=== PATIENT | female | born 1960 | race Caucasian/White ===

== ENCOUNTER 2017-07-17 01:10 | Emergency (ER) | payer BC, SELFPAY ==
[2017-07-17] MEDS ORDERED: FAMOTIDINE 20 MG/2 ML VIAL IV ONE (01:57)
[2017-07-17] MEDS ORDERED: ONDANSETRON 4 MG/2 ML VIAL ONE (01:57)
[2017-07-17] MEDS ORDERED: NA CHLORIDE 0.9% 1,000 ML ONE (01:57)
[2017-07-17] MEDS ORDERED: GLUCAGON 1 MG/VIAL ONE (01:57)
[2017-07-17 02:10] LABS: Absolute Lymphocytes (CBC) 2.1 K/uL (0.7-4.9); Absolute Monocytes 0.6 K/uL (0.1-1.3); Absolute Neutrophil 5.4 K/uL (1.8-8.0); Basophils % 0.8 % (0-1.3); Eosinophils % 2.9 % (0-4.4); Hematocrit 39.2 % (36.0-45.0); MCH 30.5 pg (27.0-35.0); MCV 89.8 fL (80-100); MPV 8.9 fL (7.6-11.3); Monocytes % 7.2 % (3.3-12.3); RBC Red Blood Cell Count 4.36 M/uL (3.86-4.86)
[2017-07-17 02:41] LABS: Albumin 4.3 g/dL (3.2-5.5); Bilirubin Direct 0.1 mg/dL (0-0.2); Protein, Total 7.2 g/dL (6.0-8.3)
--- NOTE | 2017-07-17 03:20 | ER ---
Nurse's Notes [facility] Name: Aparna Panchal Age: 57 yrs Sex: Female : 1960 Arrival Date: 07/17/2017 Time: 01:15 Bed 24 Private MD: Gisele Lal K Diagnosis: Esophageal Foreign Body Presentation: 07/17 01:33 Presenting complaint: Patient states: Pt. comes from home c/o of esophageal rk2 obstruction. Pt. states that she was eating meat yesterday around 1300 when she got a piece stuck in her throat. Pt. states that she had this happen in the past. Transition of care: patient was not received from another setting of care. Onset of symptoms was July 17, 2017. Risk Assessment: Do you want to hurt yourself or someone else? Patient reports no desire to harm self or others. Initial Sepsis Screen: Does the patient meet any 2 criteria? No. Patient's initial sepsis screen is negative. Does the patient have a suspected source of infection? No. Patient's initial sepsis screen is negative. 01:33 Method Of Arrival: Ambulatory rk2 01:33 Acuity: HAYLIE 3 rk2 03:23 Care prior to arrival: None. bb Triage Assessment: 01:38 General: Appears in no apparent distress. well developed, well nourished, Behavior is rk2 calm, cooperative. Pain:. EENT: Reports meat stuck in throat. Neuro: Level of Consciousness is alert, obeys commands, Oriented to person, place, time, situation. Respiratory: Airway is patent Respiratory effort is even, unlabored, Respiratory pattern is regular, symmetrical. Derm: Skin is pink, warm \T\ dry. Historical: - Allergies: 01:43 Compazine; rk2 01:43 CELESTINO INHIBITORS; rk2 - Immunization history:: Pneumococcal vaccine is not up to date, Flu vaccine is not up to date. - Social history:: Smoking status: Patient/guardian denies using tobacco, never smoked. - Ebola Screening: : Patient negative for fever greater than or equal to 101.5 degrees Fahrenheit, and additional compatible Ebola Virus Disease symptoms. - Family history:: not pertinent. - Hospitalizations: : No recent hospitalization is reported. Screenin:41 Abuse screen: Denies threats or abuse. Nutritional screening: No deficits noted. rk2 Tuberculosis screening: No symptoms or risk factors identified. Fall Risk None identified. Assessment: 03:10 Reassessment: report called to Raj Paula RN at [facility] bed 1515. bb 03:21 Reassessment: Patient and/or family updated on plan of care and expected duration. Pain bb level reassessed. Patient is alert, oriented x 3, equal unlabored respirations, skin warm/dry/pink. pt appears in no discomfort, IV site intact, family at bedside awaiting transfer to [facility]. 03:46 Reassessment: [facility] at bedside for transport to [facility], pt is A\T\O x 4, resp bb unlabored, IV site intact. Vital Signs: 01:38 BP 165 / 91; Pulse 74; Resp 17; Temp 98.2; Pulse Ox 97% on R/A; rk2 03:22 BP 150 / 75; Pulse 59; Resp 18 S; Temp 98.2(O); Pulse Ox 97% on R/A; bb ED Course: 01:15 Patient arrived in ED. al2 01:16 Gisele Lal MD is Private Physician. al2 01:24 Ratna Roldan, AXEL is Primary Nurse. rk2 01:26 Milton Rodríguez MD is Attending Physician. wa 01:38 Triage completed. rk2 01:40 Inserted saline lock: 20 gauge in right antecubital area, using aseptic technique. bb Blood collected. 01:41 Patient has correct armband on for positive identification. Bed in low position. Call rk2 light in reach. 01:43 Arm band placed on. rk2 02:00 Chest Pa And Lat (2 Views) XRAY Sent. rk2 02:04 X-ray completed. jw2 02:04 Chest Pa And Lat (2 Views) XRAY In Process Unspecified. EDMS 03:23 No provider procedures requiring assistance completed. Patient transferred, IV remains bb in place. Administered Medications: 02:14 Drug: Glucagon 1 mg Route: IVP; Site: right antecubital; rk2 03:20 Follow up: Response: No adverse reaction bb 02:15 Drug: NS 0.9% 1000 ml Route: IV; Rate: 1 bolus; Site: right antecubital; rk2 03:20 Follow up: IV Status: Completed infusion; IV Intake: 1000ml bb 02:15 Drug: Zofran 4 mg Route: IVP; Site: right antecubital; rk2 03:20 Follow up: Response: No adverse reaction bb 02:15 Drug: Pepcid 20 mg Route: IVP; Site: right antecubital; rk2 03:20 Follow up: Response: No adverse reaction bb Intake: 03:20 IV: 1000ml; Total: 1000ml. bb Outcome: 03:20 ER care complete, transfer ordered by MD. mcgarry 03:23 Transferred by ground EMS bb 03:23 Condition: stable 03:23 Instructed on the need for transfer. 03:47 Patient left the ED. bb Signatures: Dispatcher [employer] EDKathleen Garber RN RN bb Wailes, Jenni jw2 Milton Rodríguez MD MD wa Love, Ratna Garland RN RN rk2
--- NOTE | 2017-07-17 03:20 | EDPHYS ---
Physician Documentation [facility] Name: Aparna Panchal Age: 57 yrs Sex: Female : 1960 Arrival Date: 07/17/2017 Time: 01:15 Bed 24 Private MD: Gisele Lal K ED Physician Milton Rodríguez HPI: 07/17 03:11 This 57 yrs old Female presents to ER via Ambulatory with complaints of wa Foreign Body In Throat. 03:11 The patient or guardian reports the patient has a suspected foreign body, that has been wa ingested. The reported likely foreign body is piece of meat. Onset: The symptoms/episode began/occurred yesterday, c/o meat stuck in the "throat" since yesterday. unable to get anything down. h/o same x several years. has never seen a doctor. This is the first time it has happened and not resolved spontaneously. Current symptoms: foreign body sensation. Treatment Prior to Arrival: none. as noted above. The patient has not recently seen a physician. Historical: - Allergies: 01:43 Compazine; rk2 01:43 CELESTINO INHIBITORS; rk2 - Immunization history:: Pneumococcal vaccine is not up to date, Flu vaccine is not up to date. - Social history:: Smoking status: Patient/guardian denies using tobacco, never smoked. - Ebola Screening: : Patient negative for fever greater than or equal to 101.5 degrees Fahrenheit, and additional compatible Ebola Virus Disease symptoms. - Family history:: not pertinent. - Hospitalizations: : No recent hospitalization is reported. ROS: 03:14 Constitutional: Negative for fever, chills, and weight loss, Eyes: Negative for injury, wa pain, redness, and discharge, Neck: Negative for injury, pain, and swelling, Cardiovascular: Negative for chest pain, palpitations, and edema, Respiratory: Negative for shortness of breath, cough, wheezing, and pleuritic chest pain, Back: Negative for injury and pain, : Negative for injury, bleeding, discharge, and swelling, MS/Extremity: Negative for injury and deformity, Skin: Negative for injury, rash, and discoloration, Neuro: Negative for headache, weakness, numbness, tingling, and seizure. 03:14 ENT: Positive for foreign body sensation. 03:14 Abdomen/GI: Positive for FB IN ESOPHAGUS. 03:14 All other systems are negative. Exam: 03:15 Constitutional: This is a well developed, well nourished patient who is awake, alert, wa and in no acute distress. Head/Face: Normocephalic, atraumatic. Eyes: Pupils equal round and reactive to light, extra-ocular motions intact. Lids and lashes normal. Conjunctiva and sclera are non-icteric and not injected. Cornea within normal limits. Periorbital areas with no swelling, redness, or edema. ENT: Nares patent. No nasal discharge, no septal abnormalities noted. Tympanic membranes are normal and external auditory canals are clear. Oropharynx with no redness, swelling, or masses, exudates, or evidence of obstruction, uvula midline. Mucous membranes moist. Neck: Trachea midline, no thyromegaly or masses palpated, and no cervical lymphadenopathy. Supple, full range of motion without nuchal rigidity, or vertebral point tenderness. No Meningismus. Cardiovascular: Regular rate and rhythm with a normal S1 and S2. No gallops, murmurs, or rubs. Normal PMI, no JVD. No pulse deficits. Respiratory: Lungs have equal breath sounds bilaterally, clear to auscultation and percussion. No rales, rhonchi or wheezes noted. No increased work of breathing, no retractions or nasal flaring. Abdomen/GI: Soft, non-tender, with normal bowel sounds. No distension or tympany. No guarding or rebound. No evidence of tenderness throughout. Back: No spinal tenderness. No costovertebral tenderness. Full range of motion. Skin: Warm, dry with normal turgor. Normal color with no rashes, no lesions, and no evidence of cellulitis. MS/ Extremity: Pulses equal, no cyanosis. Neurovascular intact. Full, normal range of motion. Neuro: Awake and alert, GCS 15, oriented to person, place, time, and situation. Cranial nerves II-XII grossly intact. Motor strength 5/5 in all extremities. Sensory grossly intact. Cerebellar exam normal. Normal gait. Psych: Awake, alert, with orientation to person, place and time. Behavior, mood, and affect are within normal limits. Vital Signs: 01:38 BP 165 / 91; Pulse 74; Resp 17; Temp 98.2; Pulse Ox 97% on R/A; rk2 03:22 BP 150 / 75; Pulse 59; Resp 18 S; Temp 98.2(O); Pulse Ox 97% on R/A; bb MDM: 01:26 Patient medically screened. va 03:16 Data reviewed: vital signs, nurses notes, radiologic studies. Test interpretation: by va ED physician or midlevel provider: CXR nml. labs noted for low K of 3.0. ED course: received glucagon with no effect. spoke with Dr. Ramirez (GI) at [facility] who accepted pt for endoscopy. will effect transfer. 07/17 01:51 Order name: Basic Metabolic Panel va 07/17 01:51 Order name: CBC with Diff; Complete Time: 02:47 va 07/17 01:51 Order name: Hepatic Function va 07/17 01:51 Order name: Lipase va 07/17 01:52 Order name: Basic Metabolic Panel; Complete Time: 02:46 EDMS 07/17 01:51 Order name: IV Saline Lock; Complete Time: 01:59 va 07/17 01:52 Order name: Liver (Hepatic) Function; Complete Time: 02:47 EDMS 07/17 01:52 Order name: Lipase; Complete Time: 02:46 EDMS 07/17 01:53 Order name: Chest Pa And Lat (2 Views) XRAY va 07/17 01:51 Order name: Labs collected and sent; Complete Time: 01:59 va Administered Medications: 02:14 Drug: Glucagon 1 mg Route: IVP; Site: right antecubital; rk2 03:20 Follow up: Response: No adverse reaction bb 02:15 Drug: NS 0.9% 1000 ml Route: IV; Rate: 1 bolus; Site: right antecubital; rk2 03:20 Follow up: IV Status: Completed infusion; IV Intake: 1000ml bb 02:15 Drug: Zofran 4 mg Route: IVP; Site: right antecubital; rk2 03:20 Follow up: Response: No adverse reaction bb 02:15 Drug: Pepcid 20 mg Route: IVP; Site: right antecubital; rk2 03:20 Follow up: Response: No adverse reaction bb Disposition: 07/17/17 03:20 Transfer ordered to [facility]. Diagnosis is Esophageal Foreign Body. - Reason for transfer: Higher level of care. - Accepting physician is Dr. Ramirez. - Condition is Stable. - Problem is new. - Symptoms are unchanged. Signatures: Dispatcher [employer] Kathleen Roblero RN RN Milton Duron MD MD wa Kidder, Rhonda, RN RN rk2 Corrections: (The following items were deleted from the chart) 03:47 03:20 07/17/2017 03:20 Transfer ordered to [facility]. Diagnosis is bb Esophageal Foreign Body. Reason for transfer: Higher level of care. Accepting physician is Dr. Ramirez. Condition is Stable. Problem is new. Symptoms are unchanged. malgorzata
--- NOTE | 2017-07-17 09:45 | RAD REPORT ---
EXAM DESCRIPTION: RAD - Chest Pa And Lat (2 Views) - 07/17/2017 2:06 am CLINICAL HISTORY: Dysplagia, esophageal obstruction COMPARISON: Chest exam October 2008 TECHNIQUE: PA and lateral views of the chest were obtained. FINDINGS: The lungs are clear. Trachea is midline. Heart size is normal and central vasculature is within normal limits. No pleural effusion or pneumothorax seen. No acute bone finding. Thoracic spi ne degenerative changes are present. No aortic abnormality. IMPRESSION: No acute cardiopulmonary process.
== END 2017-07-17 03:47 | disposition short-term general hospital (02) ==
LOC: ER 01:10
DX: T18.128A Food in esophagus causing other injury, initial encounter (principal); Z88.8 Allergy status to other drugs, medicaments and biological substances
CPT/HCPCS: 36415; 71046; 80048; 80076; 83690; 85025; 96361; 96374; 96375; 99285; J1610; J2405; J7030

== ENCOUNTER → 2023-02-26 | Emergency (ER) | payer OTHER, SELFPAY ==
[~2023-02-26] MED LIST: FLEET ENEMA ADULT PR ONE
--- NOTE | 2023-02-26 08:42 | ER ---
Nurse's Notes [facility] Name: Aparna Panchal Age: 62 yrs Sex: Female : 1960 Arrival Date: 02/26/2023 Time: 06:55 Bed 6 Private MD: Diagnosis: Constipation Presentation: 02/26 07:17 Chief complaint: Abdominal pain and constipation x 3 days. Coronavirus screen: At this hb time, the client does not indicate any symptoms associated with coronavirus-19. Ebola Screen: No symptoms or risks identified at this time. Initial Sepsis Screen: Does the patient meet any 2 criteria? No. Patient's initial sepsis screen is negative. Does the patient have a suspected source of infection? No. Patient's initial sepsis screen is negative. Risk Assessment: Do you want to hurt yourself or someone else? Patient reports no desire to harm self or others. Onset of symptoms was February 24, 2023. 07:17 Method Of Arrival: Ambulatory hb 07:17 Acuity: HAYLIE 3 hb Historical: - Allergies: 07:18 CELESTINO INHIBITORS; hb 07:18 Compazine; hb - Home Meds: 07:18 losartan oral [Active]; hb - PMHx: 07:18 Hypertension; hb - Immunization history:: Adult Immunizations unknown. - Social history:: Smoking status: Patient denies any tobacco usage or history of. Screenin:35 [facility] ED Fall Risk Assessment (Adult) History of falling in the last 3 months, db including since admission No falls in past 3 months (0 pts) Score/Fall Risk Level 0 - 2 = Low Risk Oriented to surroundings, Maintained a safe environment. Abuse screen: Denies threats or abuse. Denies injuries from another. Nutritional screening: No deficits noted. Tuberculosis screening: No symptoms or risk factors identified. Assessment: 07:34 Reassessment: Patient appears in no apparent distress at this time. Patient and/or db family updated on plan of care and expected duration. Pain level reassessed. Patient is alert, oriented x 3, equal unlabored respirations, skin warm/dry/pink. CONSTIPATION SINCE MONDAY, FOR 2 DAYS. General: Appears in no apparent distress. comfortable, Behavior is calm, cooperative. Pain: Complains of pain in abdomen. Neuro: Level of Consciousness is awake, alert, obeys commands, Oriented to person, place, time, situation. Respiratory: Airway is patent Respiratory effort is even, unlabored, Respiratory pattern is regular, symmetrical. GI: Abdomen is distended, Bowel sounds present X 4 quads. Abd is soft and non tender. 08:19 Reassessment: Patient appears in no apparent distress at this time. FLEETS ENEMA IN db PATIENT. PATIENT PLACED ON LEFT SIDE. PATIENT INSTRUCTED TO HOLD ENEMA AND USE BEDSIDE COMMODE WHEN NO LONGER ABLE TO HOLD. PATIENT VERBALIZED UNDERSTANDING. 08:56 Reassessment: Patient appears in no apparent distress at this time. Patient and/or db family updated on plan of care and expected duration. Pain level reassessed. Patient is alert, oriented x 3, equal unlabored respirations, skin warm/dry/pink. PATIENT REPORTS SOFT BROWN BOWEL MOVEMENT. FEELS BETTER Patient states feeling better. Patient states symptoms have improved. Vital Signs: 07:17 BP 194 / 108; Pulse 75; Resp 16; Temp 98.5(TE); Pulse Ox 100% on R/A; Weight 133.81 kg; hb Height 5 ft. 4 in. ; Pain 4/10; 08:56 BP 182 / 98; Pulse 78; Resp 18; Temp 98.5; Pulse Ox 99% on R/A; db 07:17 Body Mass Index 50.64 (133.81 kg, 162.56 cm) hb 07:17 Pain Scale: Adult hb ED Course: 07:04 Patient arrived in ED. gm2 07:18 Triage completed. hb 07:19 Regan Hsieh MD is Attending Physician. ec2 07:22 Arm band placed on. jb4 07:34 Loly Darby, RN is Primary Nurse. db 08:07 Abdomen 1 View (KUB) XRAY In Process Unspecified. EDMS 08:20 Patient has correct armband on for positive identification. Bed in low position. Call db light in reach. Side rails up X 1. Warm blanket given. 08:56 Provided Education on: CONSTIPATION . db 08:56 No provider procedures requiring assistance completed. Patient did not have IV access db during this emergency room visit. Administered Medications: 08:06 Drug: Fleet Enema NJ 133 ml NJ once; may repeat once Route: NJ; db 08:57 Follow up: Response: No adverse reaction db Medication: 08:56 VIS not applicable for this client. db Outcome: 08:42 Discharge ordered by . ec2 08:56 Discharged to home ambulatory, db 08:56 Condition: stable 08:56 Discharge instructions given to patient, Instructed on discharge instructions, follow up and referral plans. 08:57 Patient left the ED. db Signatures: Dispatcher [employer] EDNorma Adkins, RN RN Tera Carmichael RN RN jb4 Loly Darby RN RN db Regan Hsieh MD MD ec2 Chika Davies gm2 Corrections: (The following items were deleted from the chart) 07:19 07:17 Pulse 75bpm; Resp 16bpm; Pulse Ox 100% RA; Temp 98.5F Temporal; 133.81 kg; Height hb 5 ft. 4 in.; BMI: 50.6; Pain 410, Adult; hb 07:22 07:17 Chief complaint: Abdominal pain and constipation. hb jb4 08:56 08:56 Reassessment: Patient appears in no apparent distress at this time. Patient db and/or family updated on plan of care and expected duration. Pain level reassessed. Patient is alert, oriented x 3, equal unlabored respirations, skin warm/dry/pink. db 08:57 08:56 Reassessment: Patient appears in no apparent distress at this time. Patient db and/or family updated on plan of care and expected duration. Pain level reassessed. Patient is alert, oriented x 3, equal unlabored respirations, skin warm/dry/pink. Patient states feeling better. Patient states symptoms have improved. db
--- NOTE | 2023-02-26 08:43 | EDPHYS ---
Physician Documentation [facility] Name: Aparna Panchal Age: 62 yrs Sex: Female : 1960 Arrival Date: 02/26/2023 Time: 06:55 Bed 6 Private MD: ED Physician Regan Hsieh HPI: 02/26 07:36 This 62 yrs old Female presents to ER via Ambulatory with complaints of ec2 Constipation. 07:36 Patient arrives today for evaluation of constipation. Patient reports that she "has a ec2 bowel obstruction. "Denies any history of bowel obstruction, states that she read this on the Internet. Patient states that she is having issues with significant straining. Patient reports no nausea or vomiting, denies any abdominal pain. States that she is been tolerating p.o. intake.. Historical: - Allergies: 07:18 CELESTINO INHIBITORS; hb 07:18 Compazine; hb - Home Meds: 07:18 losartan oral [Active]; hb - PMHx: 07:18 Hypertension; hb - Immunization history:: Adult Immunizations unknown. - Social history:: Smoking status: Patient denies any tobacco usage or history of. ROS: 07:36 Constitutional: as per hpi ec2 Exam: 07:36 Constitutional: GEN: NAD Head: atraumatic Eyes: EOMI Ears: External ears are ec2 normal. CV: regular rate LUNGS: no respiratory distress ABD: Morbidly obese, non-distended, soft, nontender, not guarding, not rigid SKIN: no evidence of rashes MSK: no evidence of trauma NEURO: moves all extremities equally Vital Signs: 07:17 BP 194 / 108; Pulse 75; Resp 16; Temp 98.5(TE); Pulse Ox 100% on R/A; Weight 133.81 kg; hb Height 5 ft. 4 in. ; Pain 4/10; 08:56 BP 182 / 98; Pulse 78; Resp 18; Temp 98.5; Pulse Ox 99% on R/A; db 07:17 Body Mass Index 50.64 (133.81 kg, 162.56 cm) hb 07:17 Pain Scale: Adult hb MDM: 07:20 Patient medically screened. ec2 07:36 Data reviewed: vital signs. ED course: Patient arrives today for evaluation of ec2 constipation. Examination remarkable for well-appearing nontoxic individual is otherwise in no acute distress with a reassuring abdominal examination. In regards to the patient's initial complaint of "I have a bowel obstruction ", I have a low index suspicion for this as the patient has a benign abdomen without any significant discomfort on palpation and has no issues with p.o. intake or nausea or vomiting. Patient with no history of this either. Will obtain abdominal x-ray however have a low index suspicion for acute obstruction.. 08:15 ED course: Abdominal x-ray independently reviewed and interpreted by me, shows no ec2 air-fluid levels, low suspicion for obstruction, image quality obstructed by patient's morbidly obese body habitus.. 08:32 Differential Diagnosis as above. I considered the following discharge prescriptions or ec2 medication management in the emergency department I discussed and recommended Over The Counter medications, Pain Medications: At this time, prescription pain medications are not recommended, Medications were administered in the Emergency Department. See MAR. Independent interpretation of the following test(s) in the Emergency Department X-Ray: My interpretation is abd xray as above. Test considered but Not performed: CT: ct abd/pelv, labs. Care significantly affected by the following chronic conditions: Hypertension, Obesity. Care significantly affected by the following Social Determinants of Health: Poor access to healthcare and/or lack of insurance. 08:41 ED course: Patient had a bowel movement after Fleet enema. Will discharge home. Return ec2 precautions given.. 02/26 07:35 Order name: Abdomen 1 View (KUB) XRAY; Complete Time: 09:18 ec2 Administered Medications: 08:06 Drug: Fleet Enema VT 133 ml VT once; may repeat once Route: VT; db 08:57 Follow up: Response: No adverse reaction db Disposition Summary: 02/26/23 08:42 Discharge Ordered Notes: Location: Home ec2 Condition: Stable ec2 Diagnosis - Constipation ec2 Followup: ec2 - With: Private Physician - When: - Reason: Recheck today's complaints Discharge Instructions: - Discharge Summary Sheet ec2 - Constipation, Adult, [id number] ec2 Forms: - Medication Reconciliation Form ec2 - Thank You Letter ec2 - Antibiotic Education ec2 - Prescription Opioid Use ec2 - Patient Portal Instructions ec2 - Leadership Thank You Letter ec2 Signatures: Dispatcher [employer] EDFL Norma Sotomayor RN Loly Pantoja RN Regan Ku MD MD ec2 Corrections: (The following items were deleted from the chart) 08:15 07:36 Constitutional: GEN: NAD Head: atraumatic Eyes: EOMI Ears: External ears are ec2 normal. CV: regular rate LUNGS: no respiratory distress ABD: non-distended, soft, nontender, not guarding, not rigid SKIN: no evidence of rashes MSK: no evidence of trauma NEURO: moves all extremities equally ec2
--- NOTE | 2023-02-26 09:14 | RAD REPORT ---
EXAM DESCRIPTION: RAD - Abdomen 1 View (KUB) - 02/26/2023 8:06 am CLINICAL HISTORY: ABD PAIN COMPARISON: No comparisons TECHNIQUE: Single AP view of the abdomen. FINDINGS: Nonobstructive bowel gas pattern. No air-fluid levels, free air, or pneumatosis. Mild stoo l burden along the ascending colon. Status post cholecystectomy. No suspicious calcifications. No significant bony abnormality. IMPRESSION: Nonobstructive bowel gas pattern. Mild stool burden along the ascending colon.
[2023-02-26 09:21] VITALS: BP 182/98; TEMP 98.5; O2SAT 99
== END ==
LOC: ER 06:55
DX: K59.00 Constipation, unspecified (principal); I10 Essential (primary) hypertension; Z88.1 Allergy status to other antibiotic agents; Z88.8 Allergy status to other drugs, medicaments and biological substances
CPT/HCPCS: 74018; 99283